=== PATIENT | female | born 1985 | race Caucasian/White ===

== ENCOUNTER → 2016-12-10 | Outpatient (CLI) | payer MEDICAID ==
[~2016-12-10] MED LIST: IBUP-232 PO; OMEP40CA2 PO; PREN1CAP7 PO
== END ==
LOC: HPND 13:20
PROVIDERS: ATTEND Obstetrics & Gynecology
DX: O09.293 Supervision of pregnancy with other poor reproductive or obstetric history, third trimester (principal); O35.1XX0 Maternal care for (suspected) chromosomal abnormality in fetus, not applicable or unspecified; O41.03X0 Oligohydramnios, third trimester, not applicable or unspecified
CPT/HCPCS: 76816; 76820; 76821

== ENCOUNTER → 2016-12-18 | Outpatient (CLI) | payer MEDICAID | LOC: HPND 14:43 | PROVIDERS: ATTEND Obstetrics & Gynecology | DX: O35.1XX0 Maternal care for (suspected) chromosomal abnormality in fetus, not applicable or unspecified (principal); O41.03X0 Oligohydramnios, third trimester, not applicable or unspecified | CPT/HCPCS: 76815 ==

== ENCOUNTER 2016-12-24 11:35 | Emergency (ER) | payer MEDICAID ==
[~2016-12-24 11:35] MED LIST changes: -IBUP-232 PO
--- NOTE | 2016-12-24 12:21 | PD ---
HPI Travel History International Travel<30 Days: No Contact w/Intl Traveler<30Days: No Known Affected Area: No History of Present Illness HPI This patient is a 31-year-old 3 para 2001 EDC is February 13, 2017 at 32 weeks and 6 days she presents with rule out rupture of membranes patient states that she had a mucoid discharge about 7:30 last night kishore fluid had an occasional contraction yesterday however presently has no kishore contractions having some low back pain. care with care for women this patient's course is significant for baby B that has multiple anomalies IUGR Vermian dysgenesis Cardiomegaly VSD malaligned LVOT LUTO with bilateral hydronephrosis Oligohydramnios Omphalocele Rocker-bottom feet SUA Also has oligohydramnios with an RADHA of 2.5 AB is in the kishore breech presentation An extensive MFM consult was done aneuploidy is highly suspected patient declined any genetic screening or testing patient was counseled regarding the poor prognosis for the baby given the multiple anomalies and the suspicion for aneuploidy she was counseled regarding the risk of demise and or She presently is in the process of being transferred to [facility] for delivery Baby also has IUGR with the weight in the less than 10th percentile oligohydramnios enlarged cisterna magna inferior portion of cerebellar vermis is absent enlarged third ventricle abdominal wall defect single umbilical artery and again oligohydramnios History Past Medical History Narrative Medical Patient is allergic to penicillin and she denies any medical problems Late onset care with first visit November 28, 2016 Obstetric History Obstetric History First delivery January 22, 2007 at term male infant weight 7 lbs. 13 oz. Second delivery September 17, 2015 male weight 5 lbs. 15 oz. Past Surgical History Surgical History: No Previous Surgery Family History Narrative Family History Mother has autoimmune disease Social History Alcohol Use: Yes (smokes a half a pack of cigarettes per day) Tobacco Use: No Substance Abuse: No (denies alcohol or drugs) Allergies-Medications (Allergen,Severity, Reaction): Coded Allergies: Penicillin (Verified Allergy, Severe, Anaphylaxis, 12/24/16) Home Meds Active Scripts Omeprazole 40 Mg Cap40 Mg PO DAILY #30 CAP Ref 3 Prov:Annie Gee CNM CAR DUMPER 12/05/16 W/O Vit A W/ Fe Fumar (Citranatal [place])27-1-260 Mg Cap1 Cap PO DAILY #30 CAP Ref 10 Prov:Annie Gee CNM CAR DUMPER 11/28/16 Review of Systems Genitourinary: Other (mucoid-like discharge no kishore fluid) Physical Exam Narrative GENERAL: Well-nourished, well-developed patient. Alert oriented 3 and cooperative in no acute distress SKIN: Warm and dry. HEAD: Normocephalic and atraumatic. EYES: No scleral icterus. No injection or drainage. ENT: No nasal drainage noted. Mucous membranes pink. Airway patent. NECK: Supple, trachea midline. No JVD. CARDIOVASCULAR: Regular rate and rhythm without murmurs, gallops, or rubs. RESPIRATORY: Breath sounds equal bilaterally. No accessory muscle use. ABDOMEN/GI: Gravid size is less than dates soft nontender no epigastric or right upper quadrant tenderness no palpable contractions Gravid to [-] weeks size size less than dates Fundal Height: [-] GENITOURINARY: Speculum exam is done no kishore fluid in the vagina a mucoid discharge amnisure is done External Genitalia: intact and normal in appearance BUS glands: [-] Cervix: [-] Posterior soft Dilatation: [-] 1-2 cm Effacement: [-] 0 Station: [-] Ballotable Presentation: [-] Breech via ultrasound Membranes: [intact or ruptured] Uterine Contractions: [-]0 FHT's: Category: [-] 1 Baseline: [-] 130 Reactive: [-]+ Accelerations Variability: [-] Moderate vltn-lv-skaw variability Decels: [-] An area where it appeared to be a deceleration however the baby was moving mother was moving difficult to keep the baby on the monitor EXTREMITIES: No cyanosis or edema. BACK: Nontender without obvious deformity. No CVA tenderness. NEUROLOGICAL: Awake and alert. Motor and sensory grossly within normal limits. Five out of 5 muscle strength in all muscle groups. Normal speech. Data Data Vital Signs Reviewed: Yes (blood pressure 111/74 temperature is 98.8 pulse is 84 respiration is 20) Orders Vital Signs (Adult) .ON ADMISSION (12/24/16 12:03) ^ Labor Status (12/24/16 12:03) ^ Hydration (12/24/16 12:03) Pamg-1 Test .ONCE (12/24/16 12:03) Labs Last ultrasound done December 18, 2016 her amniotic fluid index was 2.5 baby in the kishore breech presentation with the aforementioned abnormalities MDM Medical Record Reviewed: Yes Interpretation(s) 31-year-old at 32 weeks and 4 days Not in labor No clinical evidence of ruptured membranes Multiple anomalies IUGR Oligohydramnios Kishore breech Suspected aneuploidy Cigarette smoker Diagnosis Diagnosis: Primary Impression: complicated by multiple congenital anomalies, single gestation Additional Impressions: Oligohydramnios in live in second trimester Intrauterine growth restriction (IUGR) affecting care of mother, second trimester, single gestation Cigarette smoker one half pack a day or less Tammy Cote MD Dec 24, 2016 12:21
[2017-01-02] MEDS ORDERED: IBUP-232 PO (13:57)
== END 2016-12-24 13:38 | disposition home or self-care (01) ==
LOC: HOBED 11:35
DX: O41.03X0 Oligohydramnios, third trimester, not applicable or unspecified (principal); Q89.9 Congenital malformation, unspecified; O36.5930 Maternal care for other known or suspected poor fetal growth, third trimester, not applicable or unspecified; O99.333 Smoking (tobacco) complicating pregnancy, third trimester; Z3A.32 32 weeks gestation of pregnancy
CPT/HCPCS: 84112; 99284

== ENCOUNTER 2016-12-27 15:53 | Inpatient (IN) | payer MEDICAID ==
[2016-12-27] VITALS (9 sets, daily range): BP systolic 117; BP diastolic 71; PULSE 92; RESP 18; TEMP 98.3
[2016-12-27] MEDS ORDERED: LACTATED RINGER'S 1000 ML INJ 1,000 ML IV PRN (16:31)
[2016-12-27] MEDS ORDERED: LACTATED RINGER'S 1000 ML INJ 1,000 ML IV SCH (16:31)
[2016-12-27] MEDS ORDERED: LIDOCAINE HCL 1% 50 ML VIAL INFIL PRN (16:45)
[2016-12-27] MEDS ORDERED: MINERAL OIL 10 ML VIAL TOPICAL PRN (16:45)
[2016-12-27] MEDS ORDERED: LIDOCAINE HCL 1% 50 ML VIAL I-DERMAL PRN (16:45)
[2016-12-27] MEDS ORDERED: SODIUM CHLORID 0.9% 500 ML INJ 500 ML IV PRN (16:45)
[2016-12-27] MEDS ORDERED: OXYTOCIN 30 UNITS-500ML PREMIX 500 ML IV ONE (16:45)
[2016-12-27] MEDS ORDERED: CITRIC ACID-SODIUM CITRATE LIQ 30 ML UDC PO SCH (16:45)
--- NOTE | 2016-12-27 16:47 | PD ---
HPI Chief Complaint Labor Date Seen: Dec 27, 2016 Time Seen: 16:33 (Doug Duran MD R2) Travel History International Travel<30 Days: No Contact w/Intl Traveler<30Days: No Known Affected Area: No (Doug Duran MD R2) History of Present Illness HPI 31-year-old at 33.1 and ISIDORO of February 13, 2017 presents in labor. This patient is known to the OB department. care with care for women. This baby has known multiple anomalies concerning for trisomy 13 and/or trisomy 18 (see previous MFM consult). Mom has already been extensively counseled regarding the risks of demise and/or . We again had an extensive conversation regarding this. Patient was in the process of being transferred to [facility] for care and was planning to drive to appointment today but she did not think she could make it there prior to giving . She has been having contractions every 3-4 minutes which take her breath away since this morning. In the bathroom here, she had small amount of vaginal bleeding. No loss of fluid, however the patient has known oligohydramnios. No fever, chills. Para: 2 : 3 (Doug Duran MD R2) History Past Medical History Narrative Medical Patient is allergic to penicillin and cephalosporins Reflux Late onset care with first visit November 28, 2016 (Doug Duran MD R2 ) Obstetric History Obstetric History First delivery January 22, 2007 at term male weight 7 lbs. 13 oz. Second delivery September 17, 2015 male infant weight 5 lbs. 15 oz. (Doug Duran MD R2) Past Surgical History Surgical History: No Previous Surgery (Doug Duran MD R2) Family History Narrative Family History Mother with autoimmune disease Family History: (Doug Duran MD R2) Social History Alcohol Use: No Tobacco Use: Yes (1/2-1 pack per day) Substance Abuse: No (Doug Duran MD R2) Allergies-Medications (Allergen,Severity, Reaction): Coded Allergies: Penicillin (Verified Allergy, Severe, Anaphylaxis, 12/24/16) Home Meds Active Scripts Omeprazole 40 Mg Cap40 Mg PO DAILY #30 CAP Ref 3 Prov:Annie Gee CNM DROP HAMMER SET UP OPERATOR 12/05/16 W/O Vit A W/ Fe Fumar (Citranatal [place])27-1-260 Mg Cap1 Cap PO DAILY #30 CAP Ref 10 Prov:Annie Gee CNM DROP HAMMER SET UP OPERATOR 11/28/16 Review of Systems General / Constitutional: No: Fever HENT: No: Headaches, Vertigo (Doug Duran MD R2) Physical Exam Narrative GENERAL: Well-nourished, well-developed patient. SKIN: Warm and dry. HEAD: Normocephalic and atraumatic. EYES: No scleral icterus. No injection or drainage. ENT: No nasal drainage noted. Mucous membranes pink. Airway patent. NECK: Supple, trachea midline. No JVD. CARDIOVASCULAR: Regular rate and rhythm without murmurs, gallops, or rubs. RESPIRATORY: Breath sounds equal bilaterally. No accessory muscle use. ABDOMEN/GI: Abdomen soft, non-tender, bowel sounds present, no rebound, no guarding GENITOURINARY: External Genitalia: intact and normal in appearance Dilatation: 10 Effacement:100 Station: -3 Presentation: Breech Uterine Contractions: Intermittent FHT's: Category: 2-3 Baseline: 160 Reactive: yes Variability: Moderate Decels: Repetitive decelerations EXTREMITIES: No cyanosis or edema. BACK: Nontender without obvious deformity. No CVA tenderness. NEUROLOGICAL: Awake and alert. Motor and sensory grossly within normal limits. Five out of 5 muscle strength in all muscle groups. Normal speech. (Doug Duran MD R2) Data Data Vital Signs Reviewed: Yes Orders Ob (2e) Additional Admit Info (12/27/16 16:25) Admit To Inpatient (12/27/16 ) Code Status (12/27/16 16:31) Vital Signs (Adult) .Per protocol (12/27/16 16:31) ^ Heart (12/27/16 16:31) ^ Amnioinfusion (12/27/16 16:31) Urinary Catheter Management .ONCE (12/27/16 16:31) Diet Liquid (12/27/16 Dinner) Lactated Ringer's 1000 Ml Inj (Lr 1000 M (12/27/16 16:31) Lactated Ringer's 1000 Ml Inj (Lr 1000 M (12/27/16 16:31) Sodium Chlorid 0.9% 500 Ml Inj (Ns 500 M (12/27/16 16:45) Sodium Chlor 0.9% 1000 Ml Inj (Ns 1000 M (12/27/16 16:51) Lidocaine 1% Inj (50 Ml) (Xylocaine 1% I (12/27/16 16:45) Citric Acid-Sodium Citrate Liq (Bicitra (12/27/16 16:45) Fentanyl Inj (Fentanyl Inj) (12/27/16 16:45) Fentanyl Inj (Fentanyl Inj) (12/27/16 16:45) Complete Blood Count With Diff (12/27/16 16:31) Hold Clot (12/27/16:) Abo/Rh Blood Type (12/27/16 16:31) Urinalysis - C+S If Indicated (12/27/16 16:31) Resp Oxygen Non Rebreathe Mask (12/27/16 ) ^ Epidural / Intrathecal Infus (12/27/16:31) Oxytocin 30 Units-500ml Premix (Pitocin (12/27/16 16:45) Lidocaine 1% Inj (50 Ml) (Xylocaine 1% I (12/27/16 16:45) Light Mineral Oil (Muri-Lube Oil) (12/27/16 16:45) Inpatient Certification (12/27/16 ) Specimen To Be Collected PRN (12/27/16 16:31) (Doug Duran MD R2) MDM Medical Record Reviewed: Yes Interpretation(s) 31-year-old at 33.1 presents in labor with known abnormalities. Patient has been extensively counseled on previous visits about likelihood of demise. Because the patient is fully dilated, we'll proceed with vaginal delivery. Patient was given the option of being taken off the monitor given high likelihood of demise. 1. IUP 2. Labor Eminent delivery expected. Patient dilated to 10 cm. We'll plan for breech delivery. Counseled extensively high likelihood of demise. Mother agrees for palliative treatment regarding baby Patient is unsure what she would like to do after delivery including holding the baby versus other. She is contemplating these options at this time. (Doug Duran MD R2) Attending Attestation Patient seen and evaluated with resident under direct supervision, agree with assessment and plan. I discussed with the patient and her boyfriend the option of intervention versus proceeding with vaginal breech delivery. The risks and benefits were reviewed and they were confident in her decision to proceed with attempted vaginal breech delivery. They fully understand the possibility of additional risk including were morbidity associated with breech delivery. I participated in conversation with Dr. Timmons from the neonatology department regarding resuscitative efforts for this infant. The have agreed to trial of intubation if the infant is liveborn. (Dennis Will MD) Doug Duran MD R2 Dec 27, 2016 16:47 Dennis Will MD Dec 27, 2016 17:28
[2016-12-27] MEDS ORDERED: SODIUM CHLOR 0.9% 1000 ML INJ 1,000 ML IV PRN (16:51)
[2016-12-27 16:57] LABS: AUTOMATED NEUTROPHIL # 14.3 TH/MM3 (1.8-7.7); BASOPHIL # 0.1 TH/MM3 (0-0.2); BASOPHIL % 0.3 % (0.0-2.0); EOSINOPHIL # 0.4 TH/MM3 (0-0.4); EOSINOPHIL % 2.1 % (0.0-4.0); HEMO FLAGS DIFF FINAL; LYMPH % 11.5 % (9.0-44.0); LYMPHOCYTE # 2.1 TH/MM3 (1.0-4.8); MEAN CELL VOLUME 87.2 FL (80.0-100.0); MEAN CORPUSCULAR HEMOGLOBIN 29.7 PG (27.0-34.0); MONO % 7.8 % (0.0-8.0); NEUT % 78.3 % (16.0-70.0); PLATELET COUNT 253 TH/MM3 (150-450); RED BLOOD COUNT 3.67 MIL/MM3 (4.00-5.30); RED CELL DISTRIBUTION WIDTH 13.3 % (11.6-17.2); WHITE BLOOD COUNT 18.3 TH/MM3 (4.0-11.0)
--- NOTE | 2016-12-27 17:22 | PD.OB.DELI ---
Delivery Date: Dec 27, 2016 Anesthesia: None Episiotomy: None Vaginal Delivery: Normal, Spontaneous Presentation: Breech (Kishore breech presentation. The breech presented at the introitus by maternal expulsive efforts and was allowed to deliver to the umbilicus before the legs were delivered by Pinard's maneuver. Further maternal expulsive efforts delivered the to the level of the scapula and the arms were then carefully splinted across the chest and delivered individually. The breech was suspended in a blue towel and the head was maintained in a flexed position and delivered easily without delay. The cord was doubly clamped and cut and the baby was passed to the waiting attendants. Cord blood sample was obtained.) Nuchal Cord: None Delayed cord clamping (45 sec): No : Female, Single One Minute : 1 Five Minute : 1 Weight: 1210 Care: Intubated and ventilated Placenta: Spontaneous delivery, Intact Laceration: No lacerations Additional Information This was a known anomalous fetus with a suspected possible lethal anomaly for which the parents had declined delivery for breech presentation or distress. Dennis Will MD Dec 27, 2016 17:22
--- NOTE | 2016-12-27 17:29 | HHI.HP ---
History & Physical H&P Patient Name: Faraz Ruelas Unit Number: [id number] Date of : 1985 Patient Status: Admitted Inpatient Attending Doctor: Dennis Will MD HPI HPI Chief Complaint Labor Date Seen: Dec 27, 2016 Time Seen: 16:33 (Doug Duran MD R2) Travel History International Travel<30 Days: No Contact w/Intl Traveler<30Days: No Known Affected Area: No (Doug Duran MD R2) History of Present Illness HPI 31-year-old at 33.1 and ISIDORO of February 13, 2017 presents in labor. This patient is known to the OB department. care with care for women. This baby has known multiple anomalies concerning for trisomy 13 and/or trisomy 18 (see previous MFM consult). Mom has already been extensively counseled regarding the risks of demise and/or . We again had an extensive conversation regarding this. Patient was in the process of being transferred to [facility] for care and was planning to drive to appointment today but she did not think she could make it there prior to giving . She has been having contractions every 3-4 minutes which take her breath away since this morning. In the bathroom here, she had small amount of vaginal bleeding. No loss of fluid, however the patient has known oligohydramnios. No fever, chills. Para: 2 : 3 (Doug Duran MD R2) History (Limited) History Past Medical History Narrative Medical Patient is allergic to penicillin and cephalosporins Reflux Late onset care with first visit November 28, 2016 (Doug Duran MD R2 ) Obstetric History Obstetric History First delivery January 22, 2007 at term male weight 7 lbs. 13 oz. Second delivery September 17, 2015 male infant weight 5 lbs. 15 oz. (Doug Duran MD R2) Past Surgical History Surgical History: No Previous Surgery (Doug Duran MD) Family History Narrative Family History Mother with autoimmune disease Family History: (Doug Duran MD R2) Social History Alcohol Use: No Tobacco Use: Yes (1/2-1 pack per day) Substance Abuse: No (Doug Duran MD R2) Allergies-Medications Allergies-Medications (Allergen,Severity, Reaction): Coded Allergies: Penicillin (Verified Allergy, Severe, Anaphylaxis, 12/24/16) Home Meds Active Scripts Omeprazole 40 Mg Cap40 Mg PO DAILY #30 CAP Ref 3 Prov:Annie Gee CNM INVESTMENT ASSOCIATE 12/05/16 W/O Vit A W/ Fe Fumar (Citranatal [place])27-1-260 Mg Cap1 Cap PO DAILY #30 CAP Ref 10 Prov:Annie Gee CNM INVESTMENT ASSOCIATE 11/28/16 ROS Review of Systems General / Constitutional: No: Fever HENT: No: Headaches, Vertigo (Doug Duran MD R2) Physical Exam Physical Exam Narrative GENERAL: Well-nourished, well-developed patient. SKIN: Warm and dry. HEAD: Normocephalic and atraumatic. EYES: No scleral icterus. No injection or drainage. ENT: No nasal drainage noted. Mucous membranes pink. Airway patent. NECK: Supple, trachea midline. No JVD. CARDIOVASCULAR: Regular rate and rhythm without murmurs, gallops, or rubs. RESPIRATORY: Breath sounds equal bilaterally. No accessory muscle use. ABDOMEN/GI: Abdomen soft, non-tender, bowel sounds present, no rebound, no guarding GENITOURINARY: External Genitalia: intact and normal in appearance Dilatation: 10 Effacement:100 Station: -3 Presentation: Breech Uterine Contractions: Intermittent FHT's: Category: 2-3 Baseline: 160 Reactive: yes Variability: Moderate Decels: Repetitive decelerations EXTREMITIES: No cyanosis or edema. BACK: Nontender without obvious deformity. No CVA tenderness. NEUROLOGICAL: Awake and alert. Motor and sensory grossly within normal limits. Five out of 5 muscle strength in all muscle groups. Normal speech. (Doug Duran MD R2) Data Data Data Vital Signs Reviewed: Yes Orders Ob (2e) Additional Admit Info (12/27/16 16:25) Admit To Inpatient (12/27/16 ) Code Status (12/27/16 16:31) Vital Signs (Adult) .Per protocol (12/27/16 16:31) ^ Heart (12/27/16 16:31) ^ Amnioinfusion (12/27/16 16:31) Urinary Catheter Management .ONCE (12/27/16 16:31) Diet Liquid (12/27/16 Dinner) Lactated Ringer's 1000 Ml Inj (Lr 1000 M (12/27/16 16:31) Lactated Ringer's 1000 Ml Inj (Lr 1000 M (12/27/16 16:31) Sodium Chlorid 0.9% 500 Ml Inj (Ns 500 M (12/27/16 16:45) Sodium Chlor 0.9% 1000 Ml Inj (Ns 1000 M (12/27/16 16:51) Lidocaine 1% Inj (50 Ml) (Xylocaine 1% I (12/27/16 16:45) Citric Acid-Sodium Citrate Liq (Bicitra (12/27/16 16:45) Fentanyl Inj (Fentanyl Inj) (12/27/16 16:45) Fentanyl Inj (Fentanyl Inj) (12/27/16 16:45) Complete Blood Count With Diff (12/27/16 16:31) Hold Clot (12/27/16 16:31) Abo/Rh Blood Type (12/27/16 16:31) Urinalysis - C+S If Indicated (12/27/16 16:31) Resp Oxygen Non Rebreathe Mask (12/27/16 ) ^ Epidural / Intrathecal Infus (12/27/16 16:31) Oxytocin 30 Units-500ml Premix (Pitocin (12/27/16 16:45) Lidocaine 1% Inj (50 Ml) (Xylocaine 1% I (12/27/16 16:45) Light Mineral Oil (Muri-Lube Oil) (12/27/16 16:45) Inpatient Certification (12/27/16 ) Specimen To Be Collected PRN (12/27/16 16:31) (Doug Duran MD R2) MDM MDM Medical Record Reviewed: Yes Interpretation(s) 31-year-old at 33.1 presents in labor with known abnormalities. Patient has been extensively counseled on previous visits about likelihood of demise. Because the patient is fully dilated, we'll proceed with vaginal delivery. Patient was given the option of being taken off the monitor given high likelihood of demise. 1. IUP 2. Labor Eminent delivery expected. Patient dilated to 10 cm. We'll plan for breech delivery. Counseled extensively high likelihood of demise. Mother agrees for palliative treatment regarding baby Patient is unsure what she would like to do after delivery including holding the baby versus other. She is contemplating these options at this time. (Doug Duran MD R2) Attending Attestation Patient seen and evaluated with resident under direct supervision, agree with assessment and plan. I discussed with the patient and her boyfriend the option of intervention versus proceeding with vaginal breech delivery. The risks and benefits were reviewed and they were confident in her decision to proceed with attempted vaginal breech delivery. They fully understand the possibility of additional risk including were morbidity associated with breech delivery. I participated in conversation with Dr. Timmons from the neonatology department regarding resuscitative efforts for this infant. The have agreed to trial of intubation if the is liveborn. (Dennis Will MD) Doug Duran MD R2 Dec 27, 2016 16:47 Dennis Will MD Dec 27, 2016 17:28 Dnenis Will MD Dec 27, 2016 17:29
[2016-12-27] MEDS ORDERED: ACETAMINOPHEN/HYDROcodone 325 MG/5 MG TAB PO PRN (17:30)
[2016-12-27] MEDS ORDERED: PETROLEUM/SHARK LIVER OIL 60 GM TUBE RECTAL PRN (17:30)
[2016-12-27] MEDS ORDERED: IBUPROFEN 600 MG TAB PO PRN (17:30)
[2016-12-27] MEDS ORDERED: DOCUSATE SODIUM 50 MG/SENNA 8.6 MG TAB PO PRN (17:30)
[2016-12-27] MEDS ORDERED: ONDANSETRON ODT 4 MG TAB PO PRN (17:30)
[2016-12-27] MEDS ORDERED: ALUMINUM/MAGNESIUM/SIMETH 30 ML CUP PO PRN (17:30)
[2016-12-27] MEDS ORDERED: ACETAMINOPHEN/HYDROcodone 325 MG/10 MG TAB PO PRN (17:30)
[2016-12-27] MEDS ORDERED: MELATONIN 5 MG TAB PO PRN (17:30)
[2016-12-27] MEDS ORDERED: ACETAMINOPHEN 325 MG TAB PO PRN (17:30)
[2016-12-27] MEDS ORDERED: SODIUM CHLORIDE 0.9% FLUSH 5 ML FLUSH IV PRN (17:30)
[2016-12-27] MEDS ORDERED: WITCH HAZEL 50%/GLYCERIN 12.5% 40 PAD JAR TOPICAL PRN (17:30)
[2016-12-27] MEDS ORDERED: CALCIUM CARBONATE 500 MG CHEWABLE TAB CHEW PRN (17:30)
[2016-12-27] MEDS ORDERED: BENZOCAINE 20% TOPICAL SPRAY 60 ML CAN TOPICAL PRN (17:30)
--- NOTE | 2016-12-27 17:33 | PD.CONS ---
History of Present Illness Service Neonatology Consult Requested By Reason for Consult Congenital malformations, p/b 33 week Primary Care Physician No Primary Care Physician Diagnoses: (1) Intrauterine growth restriction (IUGR) affecting care of mother, second trimester, single gestation (2) complicated by multiple congenital anomalies, single gestation (3) Congenital anomalies History of Present Illness Spoke to the mother at bedsides long with OB Hospitalist and RN HOUSE SUPERVISOR. Spoke in details about the different options regarding the baby's resuscitation. Both parents were present during discussion. Mother, at this time prefers a limited resuscitation including PPV and ETT placement. If infant does well and respond to these interventions, she will be transferred to [facility] for further management and care. If infant does not respond, she would not like us to provide chest compressions or medications. We will wrap the infant in the blanket,hand to mother an provide comfort care and emotional support. Past Family Social History Allergies: Coded Allergies: Penicillin (Verified Allergy, Severe, Anaphylaxis, 12/24/16) Physical Exam Vital Signs Vital Signs Date Time Temp Pulse Resp B/P Pulse Ox O2 Delivery O2 Flow Rate FiO2 12/27/16 16:40 18 12/27/16 16:15 18 Physical Exam GENERAL: This is a well-nourished, well-developed patient, in no apparent distress. SKIN: No rashes, ecchymoses or lesions. Cool and dry. HEAD: Atraumatic. Normocephalic. No temporal or scalp tenderness. EYES: Pupils equal round and reactive. Extraocular motions intact. No scleral icterus. No injection or drainage. ENT: Nose without bleeding, purulent drainage or septal hematoma. Throat without erythema, tonsillar hypertrophy or exudate. Uvula midline. Airway patent. NECK: Trachea midline. No JVD or lymphadenopathy. Supple, nontender, no meningeal signs. CARDIOVASCULAR: Regular rate and rhythm without murmurs, gallops, or rubs. RESPIRATORY: Clear to auscultation. Breath sounds equal bilaterally. No wheezes , rales, or rhonchi. GASTROINTESTINAL: Abdomen soft, non-tender, nondistended. No hepato-splenomegaly , or palpable masses. No guarding. MUSCULOSKELETAL: Extremities without clubbing, cyanosis, or edema. No joint tenderness, effusion, or edema noted. No calf tenderness. Negative Homans sign bilaterally. NEUROLOGICAL: Awake and alert. Cranial nerves II through XII intact. Motor and sensory grossly within normal limits. Five out of 5 muscle strength in all muscle groups. Normal speech. Laboratory Laboratory Tests Test 12/27/16 16:20 White Blood Count 18.3 Red Blood Count 3.67 Hemoglobin 10.9 Hematocrit 32.0 Mean Corpuscular Volume 87.2 Mean Corpuscular Hemoglobin 29.7 Mean Corpuscular Hemoglobin 34.0 Concent Red Cell Distribution Width 13.3 Platelet Count 253 Mean Platelet Volume 8.6 Neutrophils (%) (Auto) 78.3 Lymphocytes (%) (Auto) 11.5 Monocytes (%) (Auto) 7.8 Eosinophils (%) (Auto) 2.1 Basophils (%) (Auto) 0.3 Neutrophils # (Auto) 14.3 Lymphocytes # (Auto) 2.1 Monocytes # (Auto) 1.4 Eosinophils # (Auto) 0.4 Basophils # (Auto) 0.1 CBC Comment DIFF FINAL Differential Comment Result Diagram: 12/27/16 1620 Helen Irene MD Dec 27, 2016 17:33
[2016-12-27] MEDS ORDERED: MEASLES, MUMPS, RUBELLA VACCINE 0.5 ML VIAL SQ ONE (18:00)
[2016-12-27] MEDS ORDERED: DIPHTH/TETANUS/ACEL PERTUSSIS (BOOSTER) 0.5 ML VIAL/PFS IM ONE (18:00)
[2016-12-27] MEDS ORDERED: PILL SPLITTER OTHER PRN (18:00)
[2016-12-27] MEDS ORDERED: IBUP-232 PO (20:46)
--- NOTE | 2016-12-27 20:46 | HHI.DCPOC ---
Discharge Care Plan Diagnosis: (1) Vaginal delivery Report Symptoms to Your Doctor -Temperate above 100.5 degrees -Redness, of incision or excessive or foul smelling drainage -Unusual pain or calf pain -Increased vaginal bleeding -Painful or difficulty urinating -Feelings of extreme sadness or anxiety after 2 weeks Goals to Promote Your Health * To prevent worsening of your condition and complications * To maintain your health at the optimal level Directions to Meet Your Goals Take your medications as prescribed Follow your dietary instruction Follow activity as directed Ensure plenty of rest for recovery Drink fluids for hydration Keep your appointments as scheduled Take your immunizations and boosters as scheduled If your symptoms worsen call your PCP, if no PCP go to Urgent Care Center or Emergency Room Smoking is Dangerous to Your Health. Avoid second hand smoke Call the 24-hour crisis hotline for domestic abuse at Doug Durna MD R2 Dec 27, 2016 20:46
[2016-12-27 20:58] LABS: RUBELLA IGG ANTIBODY 35.7 IU/mL (10.0-500.0); RUBELLA STATUS IMMUNE (IMMUNE)
[2016-12-27] MEDS ORDERED: SODIUM CHLORIDE 0.9% FLUSH 5 ML FLUSH IV SCH (21:00)
[2016-12-27 22:25] LABS: BLOOD, URINE LARGE (NEG); COMMENT (UR) CULT NOT INDICATED; CULTURE IF INDICATED CULT NOT INDICATED; GLUCOSE,URINE NEG (NEG); KETONE, URINE NEG (NEG); NITRITE,URINE NEG (NEG); PH, URINE 6.5 (5.0-8.5); SQUAMOUS EPITHELIAL CELL URINE 1 /hpf (0-5); URINE COLOR LIGHT-YELLOW (YELLW/STRAW)
[2016-12-27 22:33] LABS: AMPHETAMINE, URINE NEG (NEG); BARBITURATES, URINE NEG (NEG); COCAINE, URINE NEG (NEG)
[2016-12-28] MEDS ORDERED: POLYETHYLENE GLYCOL 17 GM PKG PO SCH (09:00)
[2017-01-02 08:01] LABS: BATH SALTS (MDPV) UR NEG (NEG); ECSTASY (MDMA) UR NEG (NEG); HEROIN (6-ACETYLMORPHINE) UR NEG (NEG); K2 SPICE UR NEG (NEG); OBMETHADONE UR NEG (NEG); OXYCODONE (PERCODAN) NEG (NEG); PHENCYCLIDINE URINE NEG (NEG)
[2017-01-02] MEDS ORDERED: IBUP-232 PO (13:57)
== END 2016-12-27 21:59 | disposition home or self-care (01) | DRG 775 ==
LOC: HOBED 15:53 → H2EB 16:25
PROVIDERS: ADMIT Obstetrics & Gynecology; ATTEND Obstetrics & Gynecology
PROC: 10E0XZZ Delivery of Products of Conception, External Approach (ICD-10-PCS; principal; 2016-12-27)
DX: O41.03X0 Oligohydramnios, third trimester, not applicable or unspecified (principal); O36.5930 Maternal care for other known or suspected poor fetal growth, third trimester, not applicable or unspecified; O32.1XX0 Maternal care for breech presentation, not applicable or unspecified; F17.210 Nicotine dependence, cigarettes, uncomplicated; K21.9 Gastro-esophageal reflux disease without esophagitis; O99.62 Diseases of the digestive system complicating childbirth; Z88.0 Allergy status to penicillin; Z3A.33 33 weeks gestation of pregnancy; Z88.1 Allergy status to other antibiotic agents; O99.334 Smoking (tobacco) complicating childbirth; O35.1XX0 Maternal care for (suspected) chromosomal abnormality in fetus, not applicable or unspecified; Z37.0 Single live birth
CPT/HCPCS: 80307; 81001; 85025; 86592; 86762; 86900; 86901; 88307; 99285; G0481